=== PATIENT | male | born 1980 | race Caucasian/White ===

== ENCOUNTER 2016-10-01 06:24 | Day surgery (SDC) | payer OTHER ==
[~2016-10-01] VITALS: Ht 165.1 cm; Wt 73.3 kg
[~2016-10-01 06:24] MED LIST: DOXY100T20 PO; HYDR-3498 PO; IBUP-1542 PO; no meds
[2016-10-01 07:17] VITALS: Ht 165.1 cm; Wt 73.3 kg
[2016-10-01 07:28] VITALS: PULSE 63
[2016-10-01 07:40] VITALS: BP 121/65; PULSE 65; RESP 11
[2016-10-01] MEDS ORDERED: FENTAnyl 50 MCG/ML VIAL ONE (07:50)
[2016-10-01] MEDS ORDERED: MIDAZOLAM 1 MG/ML 2 ML INJ ONE ×2 (07:50)
[2016-10-01 08:05] VITALS: BP 114/75; PULSE 72; RESP 16
--- NOTE | 2016-10-01 08:35 | GILP ---
DATE OF PROCEDURE: NAME OF PROCEDURE: Esophagogastroduodenoscopy and biopsy. SURGEON: Jayden Haji MD PREOPERATIVE DIAGNOSIS: Abdominal pain. POSTOPERATIVE DIAGNOSES: 1. Gastritis. 2. Gastric mucosal biopsies were taken for Helicobacter pylori test. INDICATION FOR THE PROCEDURE: Mr. Antolin Lincoln is a 36-year-old male patient who had upper abdomin al pain, not responding to therapy. The patient was scheduled for endoscopic examination for furthe r evaluation. The procedure and possible complications are well explained to the patient, he understood and consen wilfredo to the procedure. DESCRIPTION OF PROCEDURE: Under the influence of fentanyl and Versed, the gastroscope was carefully introduced into the esophagus and under direct vision, it was advanced to the stomach and through t he pylorus into the duodenal bulb and descending duodenum. FINDINGS: ESOPHAGUS: The mucosa was normal. STOMACH: The patient had gastritis. Gastric mucosal biopsies were taken for H. pylori test. DUODENUM: Normal. He tolerated the procedure very well and there was no complication from the procedure. At the end o f the procedure, he was awake with stable vital signs and he was discharged home to the care of his family. IMPRESSION: 1. Gastritis. 2. Gastric mucosal biopsies were taken for Helicobacter pylori test. PLAN: 1. Omeprazole 40 mg p.o. q.a.m. 2. Bentyl 10 mg p.o. t.i.d. p.r.n. for pain. 3. Await H. pylori test report. Dictated By: JAYDEN MCNAIR/PASQUALE Conf#: [id number] DID#: [id number]
--- NOTE | 2016-10-01 22:45 | CONS ---
DATE OF ADMISSION: 10/01/2016 DATE OF CONSULTATION: Dear Dr. Zavala: I thank you very much for this kind referral. HISTORY OF PRESENT ILLNESS: Mr. Antolin Lincoln is a 36-year-old male patient who has been referred t o me for further evaluation of epigastric pain, which is not responding to therapy with pantoprazole . There is no past history of peptic ulcer disease. His appetite has been good and he is not losin g any weight. He is not taking any nonsteroidal anti-inflammatory agents. There is no history of g allstones. He does not have any fever, chills or jaundice. There is no history of liver disease. He denies any change in the bowel habit or rectal bleeding. There is no past history of inflammator y bowel disease. He is not a hypertensive or diabetic. He does not have any heart disease or lung problem. There is no history of kidney disease. He is status post craniotomy for meningioma. SOCIAL HISTORY: He is a nonsmoker. He does not abuse alcohol. FAMILY HISTORY: Negative for gastrointestinal tract neoplasm. ALLERGIES: THERE IS NO HISTORY OF SIGNIFICANT DRUG ALLERGY. MEDICATIONS: Pantoprazole. PHYSICAL EXAMINATION: GENERAL: He is 5 feet 5 inches tall and he weighs 165 pounds. HEART: Examination of the heart reveals normal first and second heart sounds. LUNGS: Clear. ABDOMEN: Soft without any distention. Liver and spleen are not palpable. There are no masses. Th ere is no focal tenderness. Normal bowel sounds are heard. CENTRAL NERVOUS SYSTEM: Does not reveal any focal neurological deficit. IMPRESSION: 1. Upper abdominal pain not responding to therapy with pantoprazole. 2. History of hyperlipidemia. 3. Status post craniotomy for meningioma. PLAN: 1. Continue pantoprazole. 2. Endoscopic examination for further evaluation. The procedure and possible complications are well explained to the patient. He understands and cons ents to the procedure. I thank you once again. With warmest personal regards, Dictated By: MICHAEL INFANTE MD GD/NTS Conf#: [id number] DID#: [id number] CC: MICHAEL INFANTE MD;*EndCC*
== END 2016-10-01 09:51 | disposition home or self-care (01) ==
LOC: GIL 06:24
PROVIDERS: ATTEND Internal Medicine Gastroenterology
DX: K29.70 Gastritis, unspecified, without bleeding (principal)
CPT/HCPCS: 43239; 87081; J2250; J3010; Z7610

== ENCOUNTER 2017-07-08 15:21 | Emergency (ER) | payer OTHER ==
[~2017-07-08] VITALS: Ht 157.5 cm; Wt 73.2 kg
[2017-07-08 15:32] VITALS: Ht 157.5 cm; Wt 73.2 kg
[2017-07-08] MEDS ORDERED: KETOROLAC 30 MG INJ IM STA (15:53)
[2017-07-08] MEDS ORDERED: CEFTRIAXONE 250 MG INJ IM ONE (16:00)
[2017-07-08] MEDS ORDERED: AZITHROMYCIN 250 MG TAB PO ONE (16:00)
[2017-07-08 16:39] LABS: ADD UMIC NO; UR ASCORBIC ACID NEGATIVE (NEGATIVE); UR BILIRUBIN (Dip) NEGATIVE (NEGATIVE); UR BLOOD (Dip) NEGATIVE (NEGATIVE); UR CLARITY CLEAR (CLEAR); UR COLOR YELLOW (YELLOW); UR GLUCOSE (Dip) NEGATIVE (NEGATIVE); UR KETONES (Dip) NEGATIVE (NEGATIVE); UR LEUKOCYTE ESTERASE (Dip) NEGATIVE Leu/ul (NEGATIVE); UR NITRITE (Dip) NEGATIVE (NEGATIVE); UR SPECIFIC GRAVITY (Dip) 1.024 (1.003-1.030); UR TOTAL PROTEIN (Dip) NEGATIVE (NEGATIVE); UR UROBILINOGEN (Dip) NEGATIVE (NEGATIVE)
--- NOTE | 2017-07-08 17:12 | RADRPT ---
PROCEDURE: US Scrotum. CLINICAL INDICATION: Scrotal pain. TECHNIQUE: Multiple sonographic images of the scrotal region were obtained utilizing a linear arra y transducer with grayscale and color-flow and pulsed Doppler imaging. The images were reviewed on a high-resolution PACS workstation. COMPARISON: No prior studies are available for comparison. FINDINGS: The right testis measures 4.7 x 2.2 x 3.3 cm. The left testis measures 4.9 x 2.2 x 3.1 cm. There is no intratesticular mass. The epididymi are normal. There is normal flow to both testes demonstrated with color Doppler and pulsed Doppler sonography. There are very small bilateral hydroceles. There is no right varicocele. There is a moderate-sized left varicocele with dilated veins measuring up to 2.6 mm. The scrotal wall is unremarkable. IMPRESSION: 1. Normal testes and epididymi. 2. Very small bilateral hydroceles. 3. Moderate left varicocele with dilated veins measuring up to 2.6 mm. 4. Otherwise normal scrotal ultrasound. RPTAT: QQ .Luis Eduardo Guillen MD, MD Date Time Electronically viewed and signed by .Luis Eduardo Guillen MD, MD on 07/08/2017 17:12 .R/
[2017-07-08] MEDS ORDERED: NAPR-260 PO (17:22)
[2017-07-08] MEDS ORDERED: DOXY100T20 PO (17:22)
[2017-07-08 17:52] VITALS: PULSE 80; RESP 20; TEMP 98
--- NOTE | 2017-07-08 23:44 | ERD ---
ER Documentation Chief Complaint Chief Complaint Complains of testicular pain since today HPI This patient is a 37-year-old male with past medical history of epididymitis presenting to the emergency department with complaints of left testicular pain for the past 2 days. Symptoms have been worsening. He has had similar symptoms in the past which resolved with doxycycline and NSAIDs. Symptoms are worse with walking and sitting. He denies alleviating factors. He denies swelling. He denies trauma. Symptoms are moderate in severity. He is sexually active with one female partner. He denies fevers, chills, or other symptoms at this time. ROS All systems reviewed and are negative except as per history of present illness. Medications Home Meds Active Scripts Naproxen* (Naprosyn*) 500 Mg Tablet, 500 MG PO BID Y for PAIN AND/OR INFLAMMATION, #30 TAB Prov:MICKEY GUZMAN PA-C 07/08/17 Doxycycline Hyclate* (Doxycycline Hyclate*) 100 Mg Tablet., 100 MG PO BID for 10 Days, #20 TAB Prov:MICKEY GUZMAN PA-C 07/08/17 Ibuprofen* (Motrin*) 600 Mg Tab, 600 MG PO Q6, #30 TAB Prov:VIVIAN CHURCH PA-C 11/17/15 Doxycycline Hyclate* (Doxycycline Hyclate*) 100 Mg Tablet., 100 MG PO BID for 10 Days, TAB Prov:VIVIAN CHURCH PA-C 11/17/15 Hydrocodone Bit-Acetaminophen* ([place]*) 5-325 Mg Tab, 1 TAB PO Q6 Y for PAIN, # 20 TAB Prov:STEFANIA DENNY NP 06/03/15 Ibuprofen* (Motrin*) 600 Mg Tab, 600 MG PO Q6H Y for PAIN AND OR ELEVATED TEMP, #30 Prov:STEFANIA DENNY NP 06/03/15 Reported Medications [no meds] No Conflict Check 01/05/13 Allergies Allergies: Coded Allergies: No Known Allergy (Unverified , 07/08/17) PMhx/Soc History of Surgery: Yes (crainiotomy ) Anesthesia Reaction: No Hx Neurological Disorder: No Hx Respiratory Disorders: No Hx Cardiac Disorders: No Hx Psychiatric Problems: No Hx Miscellaneous Medical Probl: No Hx Alcohol Use: Yes Hx Substance Use: No Hx Tobacco Use: No Smoking Status: Never smoker Physical Exam Vitals Vital Signs Date Time Temp Pulse Resp B/P Pulse Ox O2 Delivery O2 Flow Rate FiO2 07/08/17 17:52 98.0 80 20 Room Air 07/08/17 15:32 96.7 81 20 129/82 98 Physical Exam Const: Nontoxic, well-appearing male in no acute distress. Head: Atraumatic Eyes: Normal Conjunctiva ENT: Normal External Ears, Nose and Mouth. Neck: Full range of motion..~ No meningismus. Resp: Clear to auscultation bilaterally Cardio: Regular rate and rhythm, no murmurs Abd: Soft, non tender, non distended. Normal bowel sounds Exam: Scrotum: [Normal] Hernia: [None] Testes/Epid: Tenderness palpation bilaterally with normal lie Cremaster: [Reflex intact] Lymph: [No inguinal lymphadenopathy] Discharge: [None] Skin: No petechiae or rashes Ext: No cyanosis, or edema Neur: Awake and alert Psych: Normal Mood and Affect Results 24 hrs Laboratory Tests Test 07/08/17 16:07 Urine Color YELLOW Urine Clarity CLEAR Urine pH 6.0 Urine Specific Cocoa 1.024 Urine Ketones NEGATIVEmg/dL Urine Nitrite NEGATIVEmg/dL Urine Bilirubin NEGATIVEmg/dL Urine Urobilinogen NEGATIVEmg/dL Urine Leukocyte Esterase NEGATIVELeu/ul Urine Hemoglobin NEGATIVEmg/dL Urine Glucose NEGATIVEmg/dL Urine Total Protein NEGATIVEmg/dl Current Medications Medications (Trade) Dose Ordered Sig/Sybil Route PRN Reason Start Time Stop Time Status Last Admin Dose Admin Ketorolac Tromethamine (Toradol) 30 mg ONCE STAT IM 07/08/17 15:53 07/08/17 15:57 DC 07/08/17 16:09 Azithromycin (Zithromax) 1,000 mg ONCE ONCE PO 07/08/17 16:00 07/08/17 16:01 DC 07/08/17 16:08 Ceftriaxone Sodium (Rocephin) 250 mg ONCE ONCE IM 07/08/17 16:00 07/08/17 16:01 DC 07/08/17 16:09 Procedures/MDM Patient is a 37-year-old male presenting to the emergency department with complaints of left testicular pain. Physical examination does show tenderness palpation of the testicles bilaterally but no evidence of torsion. No evidence of inguinal hernias.For gonorrhea and chlamydia prophylactically with azithromycin and Rocephin. Urinalysis was negative for acute findings. Ultrasound of the testicles showed normal testes and epididymides. Very small bilateral hydroceles. Moderate left varicocele with dilated veins measuring up to 2.6 mm. Otherwise normal scrotal ultrasound. The varicocele may be causing the patient's pain. All of his results were shared with him and he was given copies. The patient was stable and appropriate for discharge and outpatient management with close primary care and urological follow-up. He is to return immediately for any new or worsening symptoms. PROCEDURE: US Scrotum. CLINICAL INDICATION: Scrotal pain. TECHNIQUE: Multiple sonographic images of the scrotal region were obtained utilizing a linear array transducer with grayscale and color-flow and pulsed Doppler imaging. The images were reviewed on a high-resolution PACS workstation. COMPARISON: No prior studies are available for comparison. FINDINGS: The right testis measures 4.7 x 2.2 x 3.3 cm. The left testis measures 4.9 x 2.2 x 3.1 cm. There is no intratesticular mass. The epididymi are normal. There is normal flow to both testes demonstrated with color Doppler and pulsed Doppler sonography. There are very small bilateral hydroceles. There is no right varicocele. There is a moderate-sized left varicocele with dilated veins measuring up to 2.6 mm. The scrotal wall is unremarkable. IMPRESSION: 1. Normal testes and epididymi. 2. Very small bilateral hydroceles. 3. Moderate left varicocele with dilated veins measuring up to 2.6 mm. 4. Otherwise normal scrotal ultrasound. RPTAT: QQ .Luis Eduardo Guillen MD, MD Date Time Electronically viewed and signed by .Luis Eduardo Guillen MD, on 07/08/2017 17:12 Departure Diagnosis: Primary Impression: Testicular pain Additional Impressions: Varicocele Hydrocele Condition: Fair Patient Instructions: Treating Varicocele, What Is Varicocele?, Hydrocele, Type Not Specified Additional Instructions: Call your primary care doctor TOMORROW for an appointment during the next 1-2 days.See the doctor sooner or return here if your condition worsens before your appointment time. Call your primary care doctor TOMORROW for an appointment with a urologist during the next 1 WEEK.Tell the paralegal legal secretary that you were referred from this facility. See the doctor sooner or return here if your condition worsens before your appointment time. MICKEY GUZMAN PA-C Jul 08, 2017 23:44
== END 2017-07-08 17:38 | disposition home or self-care (01) ==
LOC: FTE 15:21
DX: I86.1 Scrotal varices (principal); N43.3 Hydrocele, unspecified
CPT/HCPCS: 76870; 81003; 87591; 96372; J0696; J1885; Z7502; Z7610